=== PATIENT | female | born 1940 | race Caucasian/White ===

== ENCOUNTER 2022-05-27 05:17 | Observation (INO) ==
--- NOTE | 2022-03-03 10:51 | PAT Medication Instructions ---
Medication Instructions Date of Service March 03, 2022 Home Medications amlodipine 5 mg tablet 5 mg PO QPM aspirin 81 mg capsule 81 mg PO QAM atorvastatin 80 mg tablet 80 mg PO QPM ezetimibe 10 mg tablet 10 mg PO QAM fluticasone 250 mcg-salmeterol 50 mcg/dose blistr powdr for inhalation (Advair Diskus) 1 inh inhalation BID glipizide 10 mg tablet 10 mg PO BID lisinopril 40 mg tablet 40 mg PO QPM metoprolol tartrate 50 mg tablet 50 mg PO QAM solifenacin 5 mg tablet 5 mg PO QAM ASK your prescriber and surgeon aspirin 81 mg capsule 81 mg PO QAM DO NOT take the morning of surgery glipizide 10 mg tablet 10 mg PO BID solifenacin 5 mg tablet 5 mg PO QAM Take morning of surgery With a small sip of water, OTHERWISE NOTHING TO EAT OR DRINK AFTER MIDNIGHT: ezetimibe 10 mg tablet 10 mg PO QAM fluticasone 250 mcg-salmeterol 50 mcg/dose blistr powdr for inhalation (Advair Diskus) 1 inh inhalation BID metoprolol tartrate 50 mg tablet 50 mg PO QAM Take evening before surgery amlodipine 5 mg tablet 5 mg PO QPM atorvastatin 80 mg tablet 80 mg PO QPM fluticasone 250 mcg-salmeterol 50 mcg/dose blistr powdr for inhalation (Advair Diskus) 1 inh inhalation BID glipizide 10 mg tablet 10 mg PO BID lisinopril 40 mg tablet 40 mg PO QPM Other Notes If you have any questions please call us at [phone] or [phone] or [phone] or [phone]
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
[~2022-05-27 05:17] MED LIST: ACETAMINOPHEN 500 MG TAB PO SCH; CeleBREX 200 MG CAP PO SCH; GABAPENTIN 300 MG CAP PO SCH; LR 15ML/HR IV SCH; ceFAZolin 2000MG 2,000 MG/15 ML SYR IV SCH
[2022-05-27] MEDS ORDERED: GABAPENTIN 300 MG CAP PO SCH (06:00)
[2022-05-27] MEDS ORDERED: CeleBREX 200 MG CAP PO SCH (06:00)
[2022-05-27] MEDS ORDERED: ACETAMINOPHEN 500 MG TAB PO SCH (06:00)
[2022-05-27] MEDS ORDERED: LR 15ML/HR IV SCH (06:00)
[2022-05-27] MEDS ORDERED: ceFAZolin 2000MG 2,000 MG/15 ML SYR IV SCH (06:00)
[2022-05-27 06:31] LABS: Basophils # (auto) 0.04 K/uL (0-0.2); Basophils % (auto) 0.6 %; Eosinophils # (auto) 0.12 K/uL (0-0.50); Eosinophils % (auto) 1.8 %; Hematocrit (blood only) 40.8 % (37.0-47.0); Hemoglobin 14.2 g/dl (12.0-16.0); Immature Granulocytes # (auto) 0.02 K/uL (0.01-0.20); Immature Granulocytes % (auto) 0.3 %; Lymphocytes # (auto) 1.78 K/uL (1.2-3.4); Lymphocytes % (auto) 27.3 %; Mean Corpuscular Hemoglobin 31.1 pg (25.0-34.0); Mean Corpuscular Hgb Conc 34.8 g/dL (32.0-36.0); Mean Corpuscular Volume 89.5 fL (80.0-100.0); Mean Platelet Volume 10.5 fL (9.4-12.4); Monocytes % (auto) 9.2 %; Neutrophils # (auto) 3.95 K/uL (1.40-6.50); Neutrophils % (auto) 60.8 %; Platelet Count 207 K/uL (130-400); RDW Coefficient of Variation 12.2 % (11.5-14.5); Red Blood Count 4.56 M/uL (4.20-5.40); White Blood Count 6.51 K/ul (4.8-10.8)
[2022-05-27 06:41] LABS: BUN Creatinine Ratio 15.9 (10-20); Calcium 9.3 mg/dl (8.6-10.3); Creatinine Clr Calc Pharmacy 48.7 ml/min; Est GFR (African American) 71.4 ml/min; Est GFR (Non-African American) 61.6 ml/min; Potassium 4.1 mmol/L (3.5-5.1)
[2022-05-27] MEDS ORDERED: ceFAZolin 330 MG/ML 1 GM VIAL ONE (07:08)
[2022-05-27] MEDS ORDERED: fentaNYL citrate PF 100 MCG/2 ML VIAL ONE (07:20)
[2022-05-27] MEDS ORDERED: ePHEDrine sulfate 50 MG/ML AMP IV PRN ×2 (07:31→10:08)
[2022-05-27] MEDS ORDERED: PROMETHAZINE HCL 12.5 MG in SODIUM CHLORIDE 0.9% 50 ML IV PRN ×2 (07:31→12:04)
[2022-05-27] MEDS ORDERED: ATROPINE SULFATE 0.1 MG/ML 10ML SYR IV PRN ×2 (07:31→10:08)
[2022-05-27] MEDS ORDERED: ONDANSETRON INJ 2 MG/ML 2 ML VIAL IV PRN ×2 (07:31→12:04)
--- NOTE | 2022-05-27 07:36 | History & Physical Bridge Note ---
Date of Service May 27, 2022 History & Physical Bridge Note I have examined the patient, reviewed the History & Physical and in the interval since the performance of the History & Physical I have noted the following changes of clinical significance: no changes noted
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
[2022-05-27] MEDS ORDERED: PROPOFOL IV EMULSION 10 MG/ML 20 ML VIAL IV ONE (09:04)
[2022-05-27] MEDS ORDERED: ONDANSETRON INJ 2 MG/ML 2 ML VIAL ONE (09:04)
[2022-05-27] MEDS ORDERED: SUCCINYLCHOLINE CHLORIDE 20 MG/ML 10 ML VIAL IV ONE (09:04)
[2022-05-27] MEDS ORDERED: LIDOCAINE 2% MPF LOCAL 5 ML VIAL ONE (09:04)
[2022-05-27] MEDS ORDERED: ePHEDrine sulfate 50 MG/ML AMP ONE (09:04)
[2022-05-27] MEDS ORDERED: DEXAMETHASONE SOD INJ 4 MG/ML VIAL ONE (09:04)
[2022-05-27] MEDS ORDERED: ROCURONIUM BROMIDE 10 MG/ML 5 ML VIAL IV ONE (09:04)
[2022-05-27] MEDS ORDERED: LABETALOL HCL IV 5 MG/ML 20ML IV ONE (09:04)
[2022-05-27] MEDS ORDERED: FLOSEAL HEMOSTATIC MATRIX 10ML TOP ONE (09:28)
[2022-05-27] MEDS ORDERED: SUGAMMADEX SODIUM 200 MG/2 ML VIAL IV ONE (09:28)
--- NOTE | 2022-05-27 09:36 | Operative Report ---
Post Operative Report Pre & Post Diagnosis Operation Date: 05/27/22 07:45 Pre-Op Diagnosis: Cervical spinal stenosis with radiculopathy Post-Op Diagnosis: Same I identified the patient and participated in the time-out.: Yes Procedure Operation Date: 05/27/22 07:45 Actual Procedures #1 anterior cervical discectomy with bilateral foraminotomies C5-C6 C6-C7. #2 anterior cervical arthrodesis C5-C6 C6-C7. #3 placement of globus 7 mm coalition cage filled with I factor at C5-C6 C6-C7. Surgeon Ariel Whitaker, Horseback Excavator Swapna Anaya Estimated Blood Loss 10 Findings Consistent with Post-Op Diagnosis Specimens None Indications This is a 89-year-old female who presents above-mentioned diagnosis after failed course of nonoperative care she is here for surgical invention. Description of Procedure Patient was met with identified informed consent obtained. Patient was then ta jesse to the operative suite underwent a patient placed in spine position on the Cameron table at [facility]. All bony prominences well-padded eyes inspected to ensure no external pressure placed upon them. This point the anterior cervical spine was prepped and draped in a sterile fashion. With the assistance of fluoroscopy identified the C6 vertebral body and a transverse incision was placed along the right anterior aspect of the cervical spine overlying this region. Blunt dissection with the assistance of bipolar electrocautery was then performed down to and exposing the anterior cervical spine from see 5 to C7. Self-retaining retractors placed. Then performed a complete discectomy of C5-C6 out to the uncovertebral joints bilaterally. [place] distracting pins were utilized to assist in visualization. Removed all posterior annular fibers longitudinal ligament bilateral foraminotomies performed. Endplates burred to subcortical bleeding bone and a 7 mm coalition cage filled with I factor tapped in position and screwed into place. Then proceeded to C6-C7. Again complete discectomy performed out to the uncovertebral joints bilaterally. [place] distracting pins again utilized. Removed all posterior annular fibers longitudinal ligament bilateral foraminotomies performed and again a 7 mm coalition cage filled with I factor tapped in position and screwed into place. Incision was then copiously irrigated explored to ensure no damage to surrounding structures or remaining bleeding. 10 round EVA drain inserted. The incision was then closed with 2 Vicryl in a fashion of 4 Monocryl for final skin closure. Steri-Strips sterile dressings placed. Patient waken taken to PACU stable condition. Please note spinal cord monitoring was utilized at the procedure no changes noted. Lastly Swapna Anaya was present at the entire surgeon while the patient positioning complex portion of the surgery and final skin closure. I attest to the content of the Intraoperative Record and any orders documented therein. Any exceptions are noted below.
--- NOTE | 2022-05-27 10:45 | Anesthesiology Progress Note ---
Date of Service May 27, 2022 Anesthesia Post Procedure Vital Signs Vital Signs: Temp Pulse Pulse Resp BP BP Pulse Ox 05/27/22 10:35 60 12 137/86 97 05/27/22 10:25 59 L 12 146/60 H 97 05/27/22 10:23 57 L 05/27/22 10:15 58 L 12 146/61 H 96 05/27/22 10:05 61 19 139/55 L 94 05/27/22 09:55 61 12 138/56 L 95 05/27/22 09:46 36.0 C L 61 20 138/65 93 05/27/22 06:14 36.6 C 68 20 177/72 H 97 O2 Del Method O2 Flow Rate 05/27/22 10:35 Nasal Cannula 2 05/27/22 10:25 Nasal Cannula 2 05/27/22 10:23 05/27/22 10:15 Nasal Cannula 2 05/27/22 10:05 Nasal Cannula 2 05/27/22 09:55 Nasal Cannula 2 05/27/22 09:46 Nasal Cannula 2 05/27/22 06:14 Room Air Pain Intensity Neck: Pain Intensity: 6 Transfer of Care Handoff Completed per policy Notes Mental Status: alert / awake / arousable and participated in evaluation Nausea / Vomiting: adequately controlled Pain: adequately controlled Airway Patency, RR, SpO2: stable & adequate BP & HR: stable & adequate Hydration State: stable & adequate Anesthetic Complications: no major complications apparent and Pt Satisfied with anesthetic care
--- NOTE | 2022-05-27 10:55 | Anesthesiology Progress Note ---
Date of Service May 27, 2022 Anesthesia Post Procedure Vital Signs Vital Signs: Temp Pulse Pulse Resp BP BP Pulse Ox 05/27/22 10:45 36.4 C L 63 18 150/88 H 98 05/27/22 10:35 60 12 137/86 97 05/27/22 10:25 59 L 12 146/60 H 97 05/27/22 10:23 57 L 05/27/22 10:15 58 L 12 146/61 H 96 05/27/22 10:05 61 19 139/55 L 94 05/27/22 09:55 61 12 138/56 L 95 05/27/22 09:46 36.0 C L 61 20 138/65 93 05/27/22 06:14 36.6 C 68 20 177/72 H 97 O2 Del Method O2 Flow Rate 05/27/22 10:45 Nasal Cannula 2 05/27/22 10:35 Nasal Cannula 2 05/27/22 10:25 Nasal Cannula 2 05/27/22 10:23 05/27/22 10:15 Nasal Cannula 2 05/27/22 10:05 Nasal Cannula 2 05/27/22 09:55 Nasal Cannula 2 05/27/22 09:46 Nasal Cannula 2 05/27/22 06:14 Room Air Pain Intensity Neck: Pain Intensity: 6 Transfer of Care Handoff Completed per policy Notes Mental Status: alert / awake / arousable and participated in evaluation Nausea / Vomiting: adequately controlled Pain: adequately controlled Airway Patency, RR, SpO2: stable & adequate BP & HR: stable & adequate Hydration State: stable & adequate Anesthetic Complications: no major complications apparent and Pt Satisfied with anesthetic care Notes: 12 lead EKG checked in PACU. No change from preoperative EKG. Patient has no symptoms of chest pain or dyspnea.
[2022-05-27] MEDS ORDERED: ACETAMINOPHEN 500 MG TAB PO PRN (12:04)
[2022-05-27] MEDS ORDERED: oxyCODONE HCL IR 5 MG TAB (IMMEDIATE RELEASE) PO PRN (12:04)
[2022-05-27] MEDS ORDERED: dexAMETHasone 8 MG in SYRINGE 0 ML IV PRN (12:04)
[2022-05-27] MEDS ORDERED: ALUMINUM/MAGNESIUM SUSP 30 ML UDC PO PRN (12:04)
[2022-05-27] MEDS ORDERED: HYDROmorphone INJ 1 MG/ML SYRINGE IV PRN (12:04)
[2022-05-27] MEDS ORDERED: ONDANSETRON 4 MG OD TAB PO PRN (12:04)
[2022-05-27] MEDS ORDERED: traMADol HCL 50 MG TABLET PO PRN (12:04)
[2022-05-27] MEDS ORDERED: bisacodyL 10 MG SUPP PR PRN (12:04)
[2022-05-27] MEDS ORDERED: FAMOTIDINE 20 MG TAB PO PRN (12:04)
[2022-05-27] MEDS ORDERED: DO NOT ADMINISTER PNEUMOCOCCAL VACCINE PRN (12:04)
[2022-05-27] MEDS ORDERED: SODIUM CHLORIDE 0.9% 1000ML 1,000 ML IV SCH (12:04)
[2022-05-27] MEDS ORDERED: diphenhydrAMINE Capsule 25 MG CAP PO PRN (12:04)
[2022-05-27] MEDS ORDERED: HYDROmorphone INJ 0.5 MG/0.5 ML SYR IV PRN (12:04)
[2022-05-27] MEDS ORDERED: MAGNESIUM HYDROXIDE SUSP 30 ML UDC PO PRN (12:04)
[2022-05-27] MEDS ORDERED: DO NOT ADMINISTER FLU VACCINE PRN (12:04)
[2022-05-27] MEDS ORDERED: LORazepam 0.5 MG TAB PO PRN (12:04)
[2022-05-27] MEDS ORDERED: METOCLOPRAMIDE HCL INJ 5 MG/ML 2 ML VIAL IV PRN (12:04)
[2022-05-27] MEDS ORDERED: RACEPINEPHRINE 2.25% NEBU SOLN 0.5 ML VIAL INH PRN (12:04)
[2022-05-27] MEDS ORDERED: SOD PHOSPHATE/SOD BIPHOSPHATE ENEMA 132 ML BTL PR PRN (12:04)
[2022-05-27] MEDS ORDERED: NALOXONE HCL 0.4 MG/1 ML VIAL/CARP IV PRN (12:04)
[2022-05-27] MEDS ORDERED: ACETAMINOPHEN 1,000 MG/100 ML VIAL IV PRN (12:04)
[2022-05-27] MEDS ORDERED: hydrOXYzine HCl 25 MG TAB PO PRN (12:04)
[2022-05-27] MEDS ORDERED: LORazepam 2 MG/1 ML VIAL IV PRN (12:04)
--- NOTE | 2022-05-27 12:27 | Fluoroscopy Report ---
FL cervical 2-3V CLINICAL HISTORY: C5-C7 ACDF COMPARISON STUDY: None FLUOROSCOPY TIME: 13.1 seconds FLUOROSCOPY IMAGES: 3 EXPOSURE DOSE: 2.65 mGy FINDINGS: Anterior plate and screw fusion hardware is noted at what appears to be the C3-C5 levels wi th discectomy. Additional anterior fusion hardware and discectomy changes noted at C5-C7. A surgical sponge is noted anterior to the C7 vertebral body. Surgical drainage catheter with endotracheal tube. No acute fracture identified. Note that the images were submitted following completion of the surger y. IMPRESSION: Fluoroscopic assistance as above. ACT 112: Negative or not required by law. Electronically signed by: Kashif Parmar M.D. 05/27/2022 12:25 PM
[2022-05-27] MEDS: HYDROmorphone INJ 1 MG/ML SYRINGE IV PRN ×2 (13:11→13:20)
[2022-05-27] MEDS ORDERED: GLUCOSE 40% GEL 15 GM TUBE PO PRN (14:43)
[2022-05-27] MEDS ORDERED: GLUCOSE 10 TAB/TUBE PO PRN (14:43)
[2022-05-27] MEDS ORDERED: CARBOHYDRATES FOR HYPOGLYCEMIA PO PRN (14:43)
[2022-05-27] MEDS ORDERED: GLUCAGON FOR INJ 1 MG VIAL SQ PRN (14:43)
[2022-05-27] MEDS ORDERED: DEXTROSE 50% 50 ML SYRINGE IV PRN (14:43)
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
[2022-05-27] MEDS ORDERED: glipiZIDE 5 MG TAB PO SCH (16:30)
[2022-05-27] MEDS: INSULIN ASPART PER UNIT CHARGE SC SCH ×2 (17:28→21:22)
[2022-05-27] MEDS: ceFAZolin 2000MG 2,000 MG/15 ML SYR IV SCH ×2 (17:51→23:29)
[2022-05-27] MEDS ORDERED: lisinopril 40 MG TAB PO SCH (21:00)
[2022-05-27] MEDS ORDERED: DOCUSATE SODIUM/SENNA 50/8.6MG TAB PO SCH (21:00)
[2022-05-27] MEDS ORDERED: ATORVASTATIN 40 MG TAB PO SCH (21:00)
[2022-05-27] MEDS ORDERED: amLODIPine BESYLATE 5 MG TAB PO SCH (21:00)
[2022-05-28] MEDS ORDERED: POLYETHYLENE (MIRALAX) 17 GM PACK PO SCH (06:00)
[2022-05-28] MEDS ORDERED: METOPROLOL TARTRATE 50 MG TAB PO SCH (09:00)
[2022-05-28] MEDS ORDERED: CHOLECALCIFEROL 1,000 UNITS 25 MCG TAB PO SCH (09:00)
[2022-05-28] MEDS ORDERED: dexAMETHasone 6 MG in SYRINGE 0 ML IV SCH (09:00)
[2022-05-28] MEDS ORDERED: ASPIRIN 81 MG ECTAB PO SCH (09:00)
[2022-05-28] MEDS ORDERED: VITAMIN B COMPLEX TAB PO SCH (09:00)
[2022-05-28] MEDS ORDERED: EZETIMIBE 10 MG TABLET PO SCH (09:00)
[2022-05-28] MEDS: INSULIN ASPART PER UNIT CHARGE SC SCH (09:06)
[2022-05-28 09:39] LABS: Estimated Average Glucose 186 mg/dl; Hemoglobin A1C 8.1 % (4.5-5.6)
[2022-05-28 09:46] LABS: Hematocrit (blood only) 35.9 % (37.0-47.0); Hemoglobin 12.2 g/dl (12.0-16.0); Mean Corpuscular Hemoglobin 31.2 pg (25.0-34.0); Mean Corpuscular Volume 91.8 fL (80.0-100.0); Mean Platelet Volume 10.6 fL (9.4-12.4); Platelet Count 178 K/uL (130-400); RDW Coefficient of Variation 12.3 % (11.5-14.5); RDW Standard Deviation 40.9 fL (36.4-46.3); Red Blood Count 3.91 M/uL (4.20-5.40); White Blood Count 11.71 K/ul (4.8-10.8)
--- NOTE | 2022-05-28 09:46 | Discharge Summary ---
Date of Service May 28, 2022 Admission HPI Per Admitting Provider This is an 82-year-old female who presents with chronic persistent neck and arm pain after failing course of nonoperative care she is here for surgical invention. Principal Diagnosis Cervical spinal stenosis with radiculopathy Discharge Data Allergies Allergy/AdvReac Type Severity Reaction Status Date / Time No Known Allergies Allergy Verified 05/27/22 06:03 Consultations 05/27/22 12:04 Consult Hospitalist Routine Procedures Performed Operation Date: 05/27/22 07:45 Actual Procedures p C5-C7 Anterior Cervical Discectomy and Fusion, Spinal Cord Monitoring(Not Applicable) - Ariel Whitaker DO Ordered Studies 05/27/22 [place] cervical 2-3V Routine Hospital Course (1) Cervical stenosis of spinal canal: Patient underwent anterior cervical discectomy and fusion tolerated this well was taken to orthopedic for postop labor postop and 1 strip swallowing well. No hoarseness. Arm symptoms markedly improved. EVA drain decreasing appropriately. Excellent strength testing. Separately discharged home. Discharge orders and instructions found in chart for further review. Total Time Total Time Spent Total Time Spent (In Minutes): 20 minutes Discharge Plan Discharge Items Patient Disposition: Home - Self-Care Reason For Visit: spinal Stenosis, Cervical Region Discharge Diagnosis: Cervical spinal stenosis with radiculopathy Activity: As commented below Non-emergency contact: Primary Care Provider Call non-emergency contact if: you have any medication questions Follow-up/Referrals: Hedy Harris PA-C [Primary Care Provider] - Diet: Regular Addtl Attending Provider Instructions: ACTIVITY RECOMMENDATIONS: SELF CARE INSTRUCTIONS AFTER CERVICAL FUSIONS 1. No smoking. Smoking drastically decreases the chance of a solid fusion. 2. No bending, lifting more than 5 pounds, or twisting (roll like a log when turning in bed). 3. You may shower 3 days after surgery. Thoroughly dry wound. Do not soak in the tub. 4. Cervical collar: Must be worn at all times including sleeping. You may remove the brace only to bath, eat and if you are sitting in a recliner. 5. Please walk as much as you can for exercise. Gradually increase the distance that you walk as your endurance increases. SPECIAL CARE INSTRUCTIONS: VERY IMPORTANT TO READ AND REVIEW A. Do not take any anti-inflammatory medications (i.e. Indocin, Advil, Aspirin, Naprosyn, Aleve, Motrin, etc.) as these may inhibit the chance of a solid fusion. Tylenol is okay to take. B. Your surgical incision has been closed with a cosmetic suture under the skin that will dissolve in about 6 weeks. In 14 days, you can use a pair of clean scissors and cut the suture that is left outside of the skin at the ends of your incision. C. Complications are uncommon, but please contact us if you have any signs or symptoms of: 1. wound infection (fever higher than 102.5 degrees F, redness, separation of wound, drainage, or increasing pain from the incision) 2. blood clots in legs (pain, swelling, redness and warmth in legs) 3. urinary tract infection (fever higher than 102.5 degrees, burning upon urination or increased frequency of urination) 4. nerve problems (inability to walk on your toes or heels, numbness, loss of bowel or bladder control) 5. any other symptoms that concern you. D. Please call the office at if you have any concerns or questions about your operation or recovery. MANAGING PAIN AFTER SPINAL SURGERY 1. Narcotic medication is intended for short-term use and will be provided for surgical pain. Surgical pain usually lasts for a period of 4-6 weeks. Narcotic medication includes Percocet, Vicodin, Darvocet, Tylenol #3 or Lortab. 2. Longer-term pain is more appropriately treated with non-narcotic medication such as Tylenol ES. 3. Muscle spasm is not appropriately treated with narcotics. Muscle relaxers such as Soma, Flexeril or Skelaxin can be used along with Tylenol ES. 4. Remember that we all live with some "aches and pains". This is not unusual or uncommon after an injury or as we get older. 5. We will provide appropriate medication within the normal guidelines of their prescribed use. We will also be very cautious and aware of potential abuse and extended duration of patients' medication needs. 6. Please allow 2-3 days to process refills. Prescriptions will not be mailed but must be picked up at the office. FOLLOW UP VISIT: Keep your scheduled follow-up appointment. Any questions, please call the office at . Pending Studies at Discharge: No Stand-Alone Forms: [employer], Smoking Cessation Medications and DC Order Prescriptions: New tramadol 50 mg tablet 50 mg PO Q6H PRN (Reason: pain, moderate) Qty: 20 0RF oxycodone 5 mg tablet 5 mg PO DAILY PRN (Reason: pain) Qty: 20 0RF Continued atorvastatin 80 mg Tablet 80 mg PO QPM glipizide 10 mg Tablet 10 mg PO BID amlodipine 5 mg Tablet 5 mg PO QPM lisinopril 40 mg Tablet 40 mg PO QPM ezetimibe 10 mg Tablet 10 mg PO QAM solifenacin 5 mg Tablet 5 mg PO QAM aspirin 81 mg Capsule 81 mg PO QAM ascorbic acid (vitamin C) [Vitamin C] 1,000 mg Tablet 1,000 mg PO QAM vitamin B complex Tablet 1 tab PO QAM cholecalciferol (vitamin D3) [Vitamin D3] 25 mcg (1,000 unit) Tablet 50 mcg PO QAM metoprolol succinate 50 mg tablet extended release 24 hr 50 mg PO QAM Discharge Orders: Discharge Order (Routine); Ordered 05/28/22 Ordered By: Ariel Whitaker Admission Data Admit Date/Time: 05/27/22 09:40 Attending Provider: Ariel Whitaker Admit Provider: Ariel Whitaker Primary Care Provider: Hedy Harris Other Providers: Aracelis Winters ; Wilian Curry
[2022-05-28 10:00] LABS: BUN Creatinine Ratio 18.5 (10-20); Calcium 8.9 mg/dl (8.6-10.3); Creatinine Clr Calc Pharmacy 46.5 ml/min; Est GFR (African American) 67.7 ml/min; Est GFR (Non-African American) 58.4 ml/min; Potassium 4.2 mmol/L (3.5-5.1)
--- NOTE | 2022-05-28 10:08 | Hospitalist Progress Note ---
Date of Service May 28, 2022 Assessment & Plan (1) Cervical stenosis of spinal canal: Plan: - Pain management, bowel regimen and DVT ppx per the primary team - PT/OT consults, pt is planning on outpatient therapy - Follow am CBC to monitor for acute blood loss, last (pre-op) hgb is 14.2, current 12.2 (expected some blood loss vs. dilution perioperatively) (2) Chronic obstructive pulmonary disease: Plan: - Mild, does not wear any supplemental O2 at baseline - has rescue inhaler but does not use it (3) Paroxysmal A-fib: (4) Hypertension: (5) Hyperlipidemia: Plan: - Cont antihypertensives including metoprolol tartrate, amlodipine - asa 81 mg starting today or per surgery - Cont atorvastatin - Follows with [facility] as outpatient annually (6) Diabetes mellitus, type 2: Plan: - Last A1C from 01/28/22 was 7.4, recheck with am labs - ISS with accuchecks achs - Hold glipizide (7) CKD (chronic kidney disease): Plan: - Renally reduce medications, avoid nephrotoxins -Follow a.m. creatinine and BUN for monitoring - Cr 0.9 DVT PPx - tedkwadwo scds CODE: Full code Dispo: From home, likely DC home later today Admission and Anticipated Discharge Date Admission Date: May 27, 2022 Subjective Pt seen in follow up of med. consult s/p ACDF yesterday Currently laying in bed, in no acute distress. She states that she had a good night. She is currently wearing cervical collar, and orthopedic surgeon is present at the bedside Patient denies any fevers chills chest pain shortness of breath, denies abdominal pain or vomiting. She was able to swallow and eat breakfast this morning, little sore throat with eating. Denies any pain otherwise. Improved strength in the arms. She is inquiring about going home. Likely DC later today. Review of Systems Review of Systems: All systems reviewed & are unremarkable except as noted in Subjective Physical Exam Physical Exam: General:WD/WN elderly F in no apparent distress Head: Normocephalic, atraumatic Neck: cervical collar applied, drain w/ serosang. fluid present ENT: PERRL, EOMI Chest: Clear to auscultation, no adventitious breath sounds Cardiac: Regular rate and rhythm, no murmur, no JVD Abdominal: NABS x 4 quadrants, soft, nondistended, nontender to palpation Extremities: Normal inspection, no peripheral edema or erythema, moves extremities Psych: Normal mood and affect Neuro: AAO x 3, speech is clear, no facial asymmetry, moves extremities Results & Data Results & Data Vital Signs (Past 12 Hours) Vital Signs Temp Pulse Pulse Resp BP BP Pulse Ox 05/28/22 09:14 36.7 C 70 18 110/61 95 05/28/22 07:33 70 16 95 05/28/22 07:04 36.8 C 64 17 107/63 95 05/28/22 05:12 36.5 C 63 16 123/67 96 05/28/22 03:21 36.6 C 70 16 121/63 96 05/28/22 02:19 56 L 56 L 16 92 05/28/22 01:01 36.7 C 65 16 114/68 95 05/27/22 23:12 36.5 C 61 14 110/66 95 05/27/22 22:28 55 L 16 93 O2 Del Method O2 Flow Rate 05/28/22 09:14 Room Air 05/28/22 07:33 Room Air 05/28/22 07:04 Nasal Cannula 2 05/28/22 05:12 Nasal Cannula 1 05/28/22 03:21 Nasal Cannula 1 05/28/22 02:19 Nasal Cannula 1 05/28/22 01:01 Nasal Cannula 1 05/27/22 23:12 Nasal Cannula 1 05/27/22 22:28 Nasal Cannula 1 Laboratory Results 05/28/22 05/28/22 05/28/22 Range/Units 09:27 09:27 07:55 WBC 11.71 H (4.8-10.8) K/ul RBC 3.91 L (4.20-5.40) M/uL Hgb 12.2 (12.0-16.0) g/dl Hct 35.9 L (37.0-47.0) % MCV 91.8 (80.0-100.0) fL MCH 31.2 (25.0-34.0) pg MCHC 34.0 (32.0-36.0) g/dL RDW Std Deviation 40.9 (36.4-46.3) fL RDW Coeff of Naseem 12.3 (11.5-14.5) % Plt Count 178 (130-400) K/uL MPV 10.6 (9.4-12.4) fL Sodium 140 (136-145) mmol/L Potassium 4.2 (3.5-5.1) mmol/L Chloride 107 (98-107) mmol/L Carbon Dioxide 26 (21-32) mmol/L Anion Gap 7 (3-11) BUN 17 (6-23) mg/dl Creatinine 0.92 (0.6-1.2) mg/dl Est Cr Clr Drug Dosing 46.5 ml/min Est GFR ( Amer) 67.7 ml/min Est GFR (Non-Af Amer) 58.4 ml/min BUN/Creatinine Ratio 18.5 (10-20) Glucose 241 H (70-99(Fasting)) mg/dl POC Glucose 194 H (70-99) mg/dl Estimat Average Glucose mg/dl Hemoglobin A1c (4.5-5.6) % Calcium 8.9 (8.6-10.3) mg/dl 05/27/22 05/27/22 05/27/22 Range/Units 21:07 16:44 06:07 WBC (4.8-10.8) K/ul RBC (4.20-5.40) M/uL Hgb (12.0-16.0) g/dl Hct (37.0-47.0) % MCV (80.0-100.0) fL MCH (25.0-34.0) pg MCHC (32.0-36.0) g/dL RDW Std Deviation (36.4-46.3) fL RDW Coeff of Naseem (11.5-14.5) % Plt Count (130-400) K/uL MPV (9.4-12.4) fL Sodium (136-145) mmol/L Potassium (3.5-5.1) mmol/L Chloride (98-107) mmol/L Carbon Dioxide (21-32) mmol/L Anion Gap (3-11) BUN (6-23) mg/dl Creatinine (0.6-1.2) mg/dl Est Cr Clr Drug Dosing ml/min Est GFR ( Amer) ml/min Est GFR (Non-Af Amer) ml/min BUN/Creatinine Ratio (10-20) Glucose (70-99(Fasting)) mg/dl POC Glucose 244 H 195 H (70-99) mg/dl Estimat Average Glucose 186 mg/dl Hemoglobin A1c 8.1 H (4.5-5.6) % Calcium (8.6-10.3) mg/dl Medications Administered Current Inpatient Medications Acetaminophen (Acetaminophen 500 Mg Tab) 1,000 mg PO Q8H PRN PRN Reason: MILD Pain Scale 1,2,3 & Pre PT Stop: 06/26/22 12:03 Last Admin: 05/28/22 07:19 Dose: 1,000 mg Al Hydrox/Mg Hydrox/Simethicone (Aluminum/Magnesium Susp 30 Ml Udc) 30 ml PO Q6H PRN PRN Reason: Dyspepsia Stop: 06/26/22 12:03 Amlodipine Besylate (Amlodipine Besylate 5 Mg Tab) 5 mg PO QPM [facility] Stop: 06/26/22 20:59 Last Admin: 05/27/22 19:59 Dose: 5 mg Aspirin (Aspirin 81 Mg Ectab) 81 mg PO QAM [facility] Stop: 06/27/22 08:59 Last Admin: 05/28/22 09:04 Dose: 81 mg Atorvastatin Calcium (Atorvastatin 40 Mg Tab) 80 mg PO QPM [facility] Stop: 06/26/22 20:59 Last Admin: 05/27/22 20:00 Dose: 80 mg Bisacodyl (Bisacodyl 10 Mg Supp) 10 mg VT DAILY PRN PRN Reason: Constipation Stop: 06/26/22 12:03 Dextrose (Dextrose 50% 50 Ml Syringe) 25 - 50 ml IV UD PRN; Protocol PRN Reason: Hypoglycemia Protocol Stop: 06/26/22 14:42 Diphenhydramine HCl (Diphenhydramine Capsule 25 Mg Cap) 25 mg PO Q6H PRN PRN Reason: Allergic Rhinitis/Insomnia Stop: 06/26/22 12:03 Ezetimibe (Ezetimibe 10 Mg Tablet) 10 mg PO QAM [facility] Stop: 06/27/22 08:59 Last Admin: 05/28/22 09:05 Dose: 10 mg Epinephrine (Racepinephrine 2.25% Nebu Soln 0.5 Ml Vial) 0.5 ml INH NOW PRN PRN Reason: If stridor present Famotidine (Famotidine 20 Mg Tab) 20 mg PO Q12H PRN PRN Reason: Dyspepsia Stop: 06/26/22 12:03 Glucagon (Glucagon For Inj 1 Mg Vial) 1 mg SQ UD PRN; Protocol PRN Reason: Hypoglycemia Protocol Stop: 06/26/22 14:42 Glucose (Glucose 10 Tab/Tube) 4 - 8 tab PO UD PRN; Protocol PRN Reason: Hypoglycemia Treatment Stop: 06/26/22 14:42 Glucose (Glucose 40% Gel 15 Gm Tube) 15 - 30 gm PO UD PRN; Protocol PRN Reason: Hypoglycemia Protocol Stop: 06/26/22 14:42 Hydromorphone HCl (Hydromorphone Inj 0.5 Mg/0.5 Ml Syr) 0.5 mg IV Q3H PRN PRN Reason: MODERATE Pain (Scale 4,5,6) & Pre PT Stop: 06/10/22 12:03 Hydromorphone HCl (Hydromorphone Inj 1 Mg/Ml Syringe) 1 mg IV Q3H PRN PRN Reason: SEVERE Pain (Scale 7,8,9,10) Stop: 06/10/22 12:03 Hydroxyzine HCl (Hydroxyzine Hcl 25 Mg Tab) 25 mg PO Q8H PRN PRN Reason: Anxiety Stop: 06/26/22 12:03 Dexamethasone 8 mg/ Syringe 2 mls @ 1 mls/min IV NOW PRN PRN Reason: If stridor present Promethazine HCl 12.5 mg/ (Sodium Chloride) 50.5 mls @ 202 mls/hr IV Q6H PRN PRN Reason: Nausea &/or Vomiting Stop: 06/26/22 12:03 Acetaminophen (Ofirmev) 1,000 mg in 100 mls @ 400 mls/hr IV Q8H PRN PRN Reason: Pain Rating 1-3 & Pre PT Stop: 05/28/22 12:04 Dexamethasone 6 mg/ Syringe 1.5 mls @ 1 mls/min IV DAILY [facility] Stop: 05/30/22 09:02 Last Admin: 05/28/22 09:03 Dose: 1 mls/min Influenza Virus Vaccine Quadrival (Do Not Administer Flu Vaccine) 1 each N/A PRN PRN PRN Reason: Notification Stop: 06/26/22 12:03 Insulin Aspart (Insulin Aspart Per Unit Charge) 0 units SC ACHS [facility] Stop: 06/26/22 16:29 Last Admin: 05/28/22 09:06 Dose: 8 units Lisinopril (Lisinopril 40 Mg Tab) 40 mg PO QPM [facility] Stop: 06/26/22 20:59 Last Admin: 05/27/22 20:02 Dose: Not Given Lorazepam (Lorazepam 0.5 Mg Tab) 0.5 mg PO Q8H PRN PRN Reason: Sedation/Anxiety Stop: 06/26/22 12:03 Lorazepam (Lorazepam 2 Mg/1 Ml Vial) 0.5 mg IV Q8H PRN PRN Reason: Sedation/Anxiety Stop: 06/26/22 12:03 Magnesium Hydroxide (Magnesium Hydroxide Susp 30 Ml Udc) 30 ml PO Q24H PRN PRN Reason: Constipation Stop: 06/26/22 12:03 Metoclopramide HCl (Metoclopramide Hcl Inj 5 Mg/Ml 2 Ml Vial) 10 mg IV Q6H PRN PRN Reason: Nausea &/or Vomiting Stop: 06/26/22 12:03 Metoprolol Tartrate (Metoprolol Tartrate 50 Mg Tab) 50 mg PO QAM [facility] Stop: 06/27/22 08:59 Miscellaneous (Solifenacin ~ Order Awaiting Action) 1 each N/A QS [facility] Stop: 06/26/22 15:59 Last Admin: 05/28/22 09:05 Dose: Not Given Miscellaneous (Carbohydrates For Hypoglycemia ) 15 - 30 gm PO UD PRN PRN Reason: Hypoglycemia Protocol Stop: 06/26/22 14:42 Naloxone HCl (Naloxone Hcl 0.4 Mg/1 Ml Vial/Carp) 0.1 mg IV Q5M PRN PRN Reason: Oversedation/Resp depression Stop: 06/26/22 12:03 Ondansetron HCl (Ondansetron Inj 2 Mg/Ml 2 Ml Vial) 4 mg IV Q6H PRN PRN Reason: Nausea &/or Vomiting Stop: 06/26/22 12:03 Ondansetron HCl (Ondansetron 4 Mg Od Tab) 4 mg PO Q6H PRN PRN Reason: Nausea Stop: 06/26/22 12:03 Oxycodone HCl (Oxycodone Hcl Ir 5 Mg Tab (Immediate Release)) 5 - 10 mg PO Q4H PRN PRN Reason: Pain & Pre PT Stop: 06/10/22 12:03 Last Admin: 05/27/22 16:19 Dose: 5 mg Pneumococcal Polyvalent Vaccine (Do Not Administer Pneumococcal Vaccine) 1 each N/A PRN PRN PRN Reason: Notification Stop: 06/26/22 12:03 Polyethylene Glycol (Polyethylene (Miralax) 17 Gm Pack) 17 gm PO Q6 [facility] Stop: 06/27/22 05:59 Last Admin: 05/28/22 05:10 Dose: 17 gm Senna/Docusate Sodium (Docusate Sodium/Senna 50/8.6mg Tab) 2 tab PO HS [facility] Stop: 06/26/22 20:59 Last Admin: 05/27/22 19:59 Dose: 2 tab Sodium Biphosphate/Sodium Phosphate (Sod Phosphate/Sod Biphosphate Enema 132 Ml Btl) 132 ml VT ONE PRN PRN Reason: Constipation Stop: 06/26/22 12:03 Tramadol HCl (Tramadol Hcl 50 Mg Tablet) 50 - 100 mg PO Q4H PRN PRN Reason: Moderate-Severe pain & Pre PT Stop: 06/26/22 12:03 Vitamin B Complex (Vitamin B Complex Tab) 1 tab PO QAM [facility] Stop: 06/27/22 08:59 Vitamin D (Cholecalciferol 1,000 Units 25 Mcg Tab) 2,000 units PO QAM [facility] Stop: 06/27/22 08:59 Last Admin: 05/28/22 09:04 Dose: 2,000 units
--- NOTE | 2022-05-29 05:36 | Electrocardiogram Report ---
Test Reason : Blood Pressure : / mmHG Vent. Rate : 057 BPM Atrial Rate : 057 BPM P-R Int : 236 ms QRS Dur : 094 ms QT Int : 464 ms P-R-T Axes : 067 -72 081 degrees QTc Int : 451 ms Sinus bradycardia with 1st degree A-V block Left axis deviation Inferior infarct , age undetermined Possible Anterior infarct , age undetermined Abnormal ECG No previous ECGs available Confirmed by Jorge Luis Amador ([id number]) on 05/29/2022 5:36:00 AM Referred By: Ariel Whitaker Confirmed By:Jorge Luis Amador
== END 2022-05-28 11:37 | disposition home or self-care (01) ==
LOC: PACUINP 05:17 → ASU 05:17 → 3E 14:21